=== PATIENT | female | born 1990 | race African-American/Black ===

== ENCOUNTER 2019-12-27 17:58 | Emergency (ER) | payer OTHER ==
[~2019-12-27] VITALS: Ht 175.3 cm; Wt 108.7 kg
[~2019-12-27 17:58] MED LIST: NAPR-514 PO; TRAM50TA PO
--- NOTE | 2019-12-27 18:32 | PHYS DOC ---
Past History Past Medical History: Endometriosis (PALAKMARK APRN) Past Surgical History: Other (PALAKMARK APRN) Smoking: Cigarettes Alcohol Use: Occasionally Drug Use: None (MARK CID SOFIA) Adult General Chief Complaint Chief Complaint: ABDOMINAL PAIN HPI HPI Patient is a 29-year-old female patient with a history of endometriosis presenting to the ED today complaining of severe pelvic pain that has been going on since Wednesday. Patient denies any nausea, vomiting. She states the pain is worse when she is having a bowel movement or urinating. Denies anything relieving the pain. She has tried ibuprofen with no relief. (MARK CID SOFIA) Review of Systems Review of Systems Constitutional: Denies fever or chills [] Eyes: Denies change in visual acuity, redness, or eye pain [] HENT: Denies nasal congestion or sore throat [] Respiratory: Denies cough or shortness of breath [] Cardiovascular: No additional information not addressed in HPI [] GI: Denies abdominal pain, nausea, vomiting, bloody stools or diarrhea [] : Reports pelvic pain. Denies dysuria or hematuria [] Musculoskeletal: Denies back pain or joint pain [] Integument: Denies rash or skin lesions [] Neurologic: Denies headache, focal weakness or sensory changes [] All other systems were reviewed and found to be within normal limits, except as documented in this note. (MARK CID APRN) Allergies Allergies Allergies Coded Allergies Type Severity Reaction Last Updated Verified No Known Drug Allergies 10/22/13 No (MARK CID APRN) Physical Exam Physical Exam Constitutional: Well developed, well nourished, no acute distress, non-toxic appearance. [] HENT: Normocephalic, atraumatic, bilateral external ears normal, oropharynx moist, no oral exudates, nose normal. [] Eyes: PERRLA, EOMI, conjunctiva normal, no discharge. [] Neck: Normal range of motion, no tenderness, supple, no stridor. [] Cardiovascular:Heart rate regular rhythm, no murmur [] Lungs & Thorax: Bilateral breath sounds clear to auscultation [] Abdomen: Bowel sounds normal, soft, no tenderness, no masses, no pulsatile masses. [] Female External pelvic appears normal, cervix is visualized, closed, no CMT, mild amount of discharge in the vaginal vault no adnexal tenderness Skin: Warm, dry, no erythema, no rash. [] Back: No tenderness, no CVA tenderness. [] Extremities: No tenderness, no cyanosis, no clubbing, ROM intact, no edema. [] Neurologic: Alert and oriented X 3, normal motor function, normal sensory function, no focal deficits noted. [] Psychologic: Affect normal, judgement normal, mood normal. [] (MARK CID APRN) EKG EKG [] (MARK CID APRN) Radiology/Procedures Radiology/Procedures []PROCEDURE: US PELVIS W/TV Transabdominal and endovaginal pelvic ultrasound. INDICATION: Pelvic pain. History of endometriosis. Patient had been on medically induced menopause for 2 years. TECHNIQUE: Transabdominal and endovaginal ultrasound of the pelvis was performed using grayscale, color and spectral Doppler imaging. FINDINGS: Uterus measures 7.4 x 6.5 x 3.9 cm. The endometrium measures 5 mm. Right ovary measures 3.2 x 3.9 x 2.0 cm and demonstrates normal blood flow. Small amount of free fluid in the right adnexa is present. The left ovary measures 2.3 x 2.2 x 1.3 cm and demonstrates normal blood flow. A round mass in the uterine body dorsally is present and likely represents a small fibroadenoma. This measures 1.2 x 1.3 cm. IMPRESSION: Myomatous uterus. Otherwise unremarkable pelvic ultrasound with no evidence of ovarian torsion. Electronically signed by: Mery Grimm MD (12/27/2019 8:03 PM) [facility] [place] DICTATED AND SIGNED BY: MERY GRIMM MD DATE: 12/27/192002 CC: [id number]; MARK CID APRN; PCP,NO ~ (MARK CID APRN) Heart Score Risk Factors: Risk Factors: DM, Current or recent (<one month) smoker, HTN, HLP, family history of CAD, obesity. Risk Scores: Risk Factors: DM, Current or recent (<one month) smoker, HTN, HLP, family history of CAD, obesity. (MARK CID APRN) Course & Med Decision Making Course & Med Decision Making Pertinent Labs and Imaging studies reviewed. (See chart for details) This is a 29-year-old female patient presenting to the ED today with pelvic pain that began 4 days ago. Has history of endometriosis. Negative urine hCG, UA is negative. CBC with a WBC of 11.6, CMP with no acute findings, wet prep noted for BV, discharged on Flagyl. Pelvic ultrasound positive for myomatous uterus, otherwise no acute findings. F/u with OB in the course of this week (MARK CID APRN) Course & Med Decision Making Agree with treatment plan. I was present in the ER during the evaluation of this patient (DANIEL BRUNER DO) Dragon Disclaimer Dragon Disclaimer This electronic medical record was generated, in whole or in part, using a voice recognition dictation system. (MARK CID APRN) Departure Departure: Impression: Primary Impression: Fibroids Additional Impression: Bacterial vaginosis Disposition: DC HOME SELF CARE/HOMELESS Condition: STABLE Referrals: PCP,NO (PCP) follow up with your OBGYN as soon as you can Patient Instructions: Bacterial Vaginosis, [id number], Fibroids, [id number] Additional Instructions: You were evaluated in the emergency room, and were noted to have fibroids, you also have bacterial vaginosis, take the prescribed antibiotics until completed. Please follow-up with your [facility] RESERVATIONIST in the course of this week or next week. Scripts Metronidazole (FLAGYL) 500 Mg Tablet 1 TAB PO BID, #14 TAB Prov: MARK CID APRN 20 Tramadol Hcl (TRAMADOL HCL) 50 Mg Tablet 50 MG PO PRN Q6HRS PRN for PAIN, #12 TAB Prov: MARK CID SHOWROOM MANAGER 20 Metronidazole (FLAGYL) 500 Mg Tablet 1 TAB PO BID, #14 TAB Prov: MUTUNGAMARK SHOWROOM MANAGER 11//20 Problem Qualifiers MARK CID APRN Dec 27, 2019 18:32 DANIEL BRUNER DO Dec 27, 2019 21:30
[2019-12-27 18:51] LABS: BASO % 0 % (0-3); EOS # 0.1 x10^3/uL (0.0-0.7); EOS % 1 % (0-3); HEMATOCRIT 42.2 % (36.0-47.0); HEMOGLOBIN 13.9 g/dL (12.0-15.5); LYMPH # 3.2 x10^3/uL (1.0-4.8); LYMPH % 27 % (24-48); MEAN CORPUSCULAR HEMOGLOBIN 28 pg (25-35); MEAN CORPUSCULAR HGB CONC 33 g/dL (31-37); MEAN CORPUSCULAR VOLUME 86 fL (79-100); MONO # 0.6 x10^3/uL (0.0-1.1); MONO % 5 % (0-9); NEUT # 7.7 x10^3uL (1.8-7.7); NEUT % 66 % (31-73); PLATELET COUNT 385 x10^3/uL (140-400); RED CELL DISTRIBUTION WIDTH 13.3 % (11.5-14.5); WHITE BLOOD COUNT 11.6 x10^3/uL (4.0-11.0)
[2019-12-27 18:58] LABS: CALCIUM 8.9 mg/dL (8.5-10.1); GFR 79.3; POTASSIUM 3.6 mmol/L (3.5-5.1)
[2019-12-27 19:03] LABS: ALBUMIN 3.7 g/dL (3.4-5.0); ALBUMIN/GLOBULIN RATIO 0.9 (1.0-1.7); TOTAL BILIRUBIN 0.2 mg/dL (0.2-1.0); TOTAL PROTEIN 7.8 g/dL (6.4-8.2)
--- NOTE | 2019-12-27 20:06 | RAD ---
Transabdominal and endovaginal pelvic ultrasound. INDICATION: Pelvic pain. History of endometriosis. Patient had been on medically induced menopause for 2 years. TECHNIQUE: Transabdominal and endovaginal ultrasound of the pelvis was performed using grayscale, color and spectral Doppler imaging. FINDINGS: Uterus measures 7.4 x 6.5 x 3.9 cm. The endometrium measures 5 mm. Right ovary measures 3.2 x 3.9 x 2.0 cm and demonstrates normal blood flow. Small amount of free fluid in the right adnexa is present. The left ovary measures 2.3 x 2.2 x 1.3 cm and demonstrates normal blood flow. A round mass in the uterine body dorsally is present and likely represents a small fibroadenoma. This measures 1.2 x 1.3 cm. IMPRESSION: Myomatous uterus. Otherwise unremarkable pelvic ultrasound with no evidence of ovarian torsion. Electronically signed by: Chadwick Grimm MD (12/27/2019 8:03 PM) [facility] [place]
[2019-12-27 20:38] LABS: BARBITURATES NEG (NEG); BENZODIAZEPINES NEG (NEG); BILIRUBIN,URINE NEG (NEG); CANNABINOIDS NEG (NEG); CLARITY,URINE CLEAR; COCAINE NEG (NEG); COLOR,URINE YELLOW; GLUCOSE,URINE NEG (NEG); METHADONE NEG (NEG); OPIATES NEG (NEG); PHENCYCLIDINE NEG (NEG)
[2019-12-27 20:39] LABS: BACTERIA,URINE 0 /HPF (0-FEW); NITRITE,URINE NEG (NEG); RBC,URINE 0 /HPF (0-2); SQUAMOUS EPITHELIAL CELL,UR FEW /LPF; UROBILINOGEN,URINE 0.2 mg/dL (0.2 mg/dL); WBC,URINE RARE /HPF (0-4)
[2019-12-27] MEDS ORDERED: METR500T PO ×2 (20:45→20:46)
[2019-12-27] MEDS ORDERED: TRAM50TA PO (20:46)
[2019-12-27 20:49] LABS: AMPHETAMINE/METHAMPHETAMINE NEG (NEG)
[2019-12-27 20:52] VITALS: BP 120/75
[2019-12-29 19:11] LABS: CHLAMYDIA PROBE Negative (Negative)
== END 2019-12-27 20:50 | disposition home or self-care (01) ==
LOC: ER 17:58
DX: D21.9 Benign neoplasm of connective and other soft tissue, unspecified (principal); N76.0 Acute vaginitis; B96.89 Other specified bacterial agents as the cause of diseases classified elsewhere; F17.210 Nicotine dependence, cigarettes, uncomplicated
CPT/HCPCS: 76830; 76856; 80053; 80307; 81001; 81025; 85025; 87491; 87591; 99284; G0480; Q0111; 36415

== ENCOUNTER 2021-06-18 10:16 | Emergency (ER) | payer OTHER ==
[~2021-06-18] VITALS: Ht 175.3 cm; Wt 90.3 kg
[2021-06-18 10:16] VITALS: BP 110/68
[~2021-06-18 10:16] MED LIST changes: +METR500T PO
[2021-06-18] MEDS ORDERED: ACETAMINOPHEN 500 MG TABLET PO ONE (10:45)
[2021-06-18] MEDS ORDERED: ONDANSETRON ODT 4 MG TAB.RAPDIS PO ONE (11:00)
[2021-06-18 11:02] LABS: BACTERIA,URINE FEW /HPF (0-FEW); CLARITY,URINE HAZY; COLOR,URINE YELLOW; GLUCOSE,URINE NEG (NEG); NITRITE,URINE NEG (NEG); SQUAMOUS EPITHELIAL CELL,UR MANY /LPF; UROBILINOGEN,URINE 0.2 mg/dL (0.2 mg/dL)
[2021-06-18 11:08] LABS: BASO % 0 % (0-3); EOS % 0 % (0-3); HEMATOCRIT 38.1 % (36.0-47.0); HEMOGLOBIN 12.7 g/dL (12.0-15.5); LYMPH % 25 % (24-48); MEAN CORPUSCULAR HEMOGLOBIN 29 pg (25-35); MEAN CORPUSCULAR HGB CONC 34 g/dL (31-37); MEAN CORPUSCULAR VOLUME 86 fL (79-100); MONO # 0.4 x10^3/uL (0.0-1.1); MONO % 5 % (0-9); NEUT # 5.7 x10^3uL (1.8-7.7); NEUT % 70 % (31-73); PLATELET COUNT 332 x10^3/uL (140-400); RED BLOOD COUNT 4.44 x10^6/uL (3.50-5.40); RED CELL DISTRIBUTION WIDTH 13.1 % (11.5-14.5); WHITE BLOOD COUNT 8.2 x10^3/uL (4.0-11.0)
[2021-06-18 11:20] LABS: CALCIUM 9.2 mg/dL (8.5-10.1); CREATININE 0.7 mg/dL (0.6-1.0); GFR 118.1; POTASSIUM 3.6 mmol/L (3.5-5.1)
[2021-06-18 11:27] LABS: ALBUMIN 3.7 g/dL (3.4-5.0); TOTAL BILIRUBIN 0.4 mg/dL (0.2-1.0); TOTAL PROTEIN 7.4 g/dL (6.4-8.2)
--- NOTE | 2021-06-18 12:07 | PHYS DOC ---
Past History Past Medical History: Endometriosis (ELVI AYOUB APRN) Past Surgical History: Appendectomy, Other Additional Past Surgical Histo: Laparoscopy for Endometriosis (ELVI AYOUB APRN) Smoking: Cigarettes Alcohol Use: None Drug Use: None (ELVI AYOUB APRN) General Adult EDM: Chief Complaint: ABDOMINAL PAIN IN HPI: HPI: Patient is a 31-year-old female presents with right lower quadrant pain, nausea, vomiting, diarrhea for 1 week. Patient reports taking Tylenol for discomfort with little relief. Patient states that she had a positive test at home. Last menstrual period was 05/19. Patient denies vaginal bleeding, discharge, odor, dysuria. G1, P0. Patient has a history of endometriosis and states that this felt different than her normal pain. Denies fever. Denies exposure illness. Endometriosis is her only medical history. (ELVI AYOUB APRN) Review of Systems: Review of Systems: ROS At least 10 ROS systems have been reviewed and are negative except as documented in the HPI. General: Negative except as outlined in HPI above. Skin: Negative except as outlined in HPI above. HEENT: Negative except as outlined in HPI above. Neck: Negative except as outlined in HPI above. Respiratory: Negative except as outlined in HPI above.. Cardiovascular: Negative except as outlined in HPI above. Abdomen: Negative except as outlined in HPI above. : Negative except as outlined in HPI above. Back/MSK: Negative except as outlined in HPI above. Neuro: Negative except as outlined in HPI above. Psych: Negative except as outlined in HPI above. (ELVI AYOUB APRN) Current Medications: Current Meds: Current Medications Medications (Trade) Dose Ordered Sig/Nirav Start Time Stop Time Status Last Admin Dose Admin Acetaminophen (Tylenol) 500 mg 1X ONCE 06/18/21 10:45 06/18/21 11:04 DC 06/18/21 11:31 500 MG Ondansetron HCl (Zofran Odt) 4 mg 1X ONCE 06/18/21 11:00 06/18/21 11:04 DC 06/18/21 11:30 4 MG (ELVI AYOUB APRN) Allergies: Allergies: Allergies Coded Allergies Type Severity Reaction Last Updated Verified No Known Drug Allergies 10/22/13 No (ELVI AYOUB APRN) Physical Exam: PE: Constitutional: Well developed, well nourished, no acute distress, non-toxic appearance. [] HENT: Normocephalic, atraumatic, bilateral external ears normal, oropharynx moist, no oral exudates, nose normal. [] Eyes: PERRLA, EOMI, conjunctiva normal, no discharge. [] Neck: Normal range of motion, no tenderness, supple, no stridor. [] Cardiovascular:Heart rate regular rhythm, no murmur [] Lungs & Thorax: Bilateral breath sounds clear to auscultation [] Abdomen: Bowel sounds normal, soft, right lower quadrant tenderness Skin: Warm, dry, no erythema, no rash. [] Back: No tenderness, no CVA tenderness. [] Extremities: No tenderness, no cyanosis, no clubbing, ROM intact, no edema. [] Neurologic: Alert and oriented X 3, normal motor function, normal sensory function, no focal deficits noted. [] Psychologic: Affect normal, judgement normal, mood normal. [] (ELVI AYOUB APRN) Current Patient Data: Labs: Laboratory Tests Test 06/18/21 09:35 06/18/21 10:21 06/18/21 10:50 POC Urine HCG, Qualitative hcg positive (Negative) Urine Collection Type Unknown Urine Color Yellow Urine Clarity Hazy Urine pH 7.0 Urine Specific [place] 1.015 Urine Protein Neg (NEG-TRACE) Urine Glucose (UA) Neg mg/dL (NEG) Urine Ketones (Stick) 15 mg/dL (NEG) Urine Blood Neg (NEG) Urine Nitrite Neg (NEG) Urine Bilirubin Neg (NEG) Urine Urobilinogen Dipstick 0.2 mg/dL (0.2 mg/dL) Urine Leukocyte Esterase Neg (NEG) Urine RBC 3-5 /HPF (0-2) Urine WBC 1-4 /HPF (0-4) Urine Squamous Epithelial Cells Many /LPF Urine Bacteria Few /HPF (0-FEW) White Blood Count 8.2 x10^3/uL (4.0-11.0) Red Blood Count 4.44 x10^6/uL (3.50-5.40) Hemoglobin 12.7 g/dL (12.0-15.5) Hematocrit 38.1 % (36.0-47.0) Mean Corpuscular Volume 86 fL (79-100) Mean Corpuscular Hemoglobin 29 pg (25-35) Mean Corpuscular Hemoglobin Concent 34 g/dL (31-37) Red Cell Distribution Width 13.1 % (11.5-14.5) Platelet Count 332 x10^3/uL (140-400) Neutrophils (%) (Auto) 70 % (31-73) Lymphocytes (%) (Auto) 25 % (24-48) Monocytes (%) (Auto) 5 % (0-9) Eosinophils (%) (Auto) 0 % (0-3) Basophils (%) (Auto) 0 % (0-3) Neutrophils # (Auto) 5.7 x10^3uL (1.8-7.7) Lymphocytes # (Auto) 2.0 x10^3/uL (1.0-4.8) Monocytes # (Auto) 0.4 x10^3/uL (0.0-1.1) Eosinophils # (Auto) 0.0 x10^3/uL (0.0-0.7) Basophils # (Auto) 0.0 x10^3/uL (0.0-0.2) Maternal Serum HCG Beta Subunit 2604 mIU/mL (0-6) H Sodium Level 136 mmol/L (136-145) Potassium Level 3.6 mmol/L (3.5-5.1) Chloride Level 104 mmol/L (98-107) Carbon Dioxide Level 24 mmol/L (21-32) Anion Gap 8 (6-14) Blood Urea Nitrogen 10 mg/dL (7-20) Creatinine 0.7 mg/dL (0.6-1.0) Estimated GFR (Cockcroft-Gault) 118.1 BUN/Creatinine Ratio 14 (6-20) Glucose Level 88 mg/dL (70-99) Calcium Level 9.2 mg/dL (8.5-10.1) Total Bilirubin 0.4 mg/dL (0.2-1.0) Aspartate Amino Transferase (AST) 15 U/L (15-37) Alanine Aminotransferase (ALT) 33 U/L (14-59) Alkaline Phosphatase 48 U/L (46-116) Total Protein 7.4 g/dL (6.4-8.2) Albumin 3.7 g/dL (3.4-5.0) Albumin/Globulin Ratio 1.0 (1.0-1.7) Lipase 107 U/L (73-393) Vital Signs: Vital Signs Date Time Temp Pulse Resp B/P (MAP) Pulse Ox O2 Delivery O2 Flow Rate FiO2 06/18/21 10:16 80 110/68 (82) 98 06/18/21 10:16 16 Room Air (ELVI AYOUB APRN) EKG: EKG: [] (ELVI AYOUB APRN) Radiology/Procedures: Radiology/Procedures: []INDICATION: Reason: RLQ PAIN / Spl. Instructions: / History: COMPARISON: None. TECHNIQUE: Grayscale and color ultrasound images of the pelvis. Transabdominal and transvaginal images obtained. Transvaginal images were needed to better visualize structures that were limited on transabdominal imaging. FINDINGS: Uterus: 91 x 74 x 70 mm. Cystic structure within the uterus measuring 3 mm. Uterus has an enlarged and heterogenous appearance. Right adnexal mass measuring 49 x 37 x 24 mm with complex appearance. There is some free fluid in the adnexa. Left ovary is 36 x 28 x 15 mm. IMPRESSION: * Cystic structure within the endometrial stripe which could either be secondary to a very early gestational sac without a pole with another possible cause including a pseudogestational sac. * Heterogenous masslike structure in the right adnexa with surrounding free fluid. Differential considerations would include an adnexal origin mass or ectopic . Continued follow-up will be needed to ensure development of intrauterine and to ensure that this right adnexal mass is not se condary to an ectopic. * Enlargement of the uterus with severe heterogeneity. Could be secondary to multiple fibroids with another possible cause including adenomyosis. Its difficult to measure individual mass given that this process affecting a large portion of the myometrium. Electronically signed by: Camden Rivera MD (06/18/2021 12:18 PM) [id number] (ELVI AYOUB APRN) Heart Score: C/O Chest Pain: No Risk Factors: Risk Factors: DM, Current or recent (<one month) smoker, HTN, HLP, family history of CAD, obesity. Risk Scores: Score 0 - 3: 2.5% MACE over next 6 weeks - Discharge Home Score 4 - 6: 20.3% MACE over next 6 weeks - Admit for Clinical Observation Score 7 - 10: 72.7% MACE over next 6 weeks - Early Invasive Strategies (ELVI AYOUB APRN) Course & Med Decision Making: Course & Med Decision Making Pertinent Labs and Imaging studies reviewed. (See chart for details) [] 31-year-old female presents with right lower quadrant abdominal pain, nausea vomiting and diarrhea. Denies vaginal bleeding, odor,abnormal discharge, dysuria. Denies fever. Patient states that symptoms started last . Patient also has a history of endometriosis but feels like this pain is different. Patient's been taking Tylenol with little relief. Work-up in ER consisted of CBC, CMP, transvaginal ultrasound, urinalysis, beta hCG. Patient given Tylenol and Zofran to help with symptoms. Patient's first OB appointment is for June 25. G1, P0. All labs unremarkable. Beta-hCG 2604. Ultrasound cannot confirm gestational sac. Ultrasound also could not rule out an ectopic. I consulted Dr. Rivera at [facility]. Dr. Rivera suggested patient be seen at the [facility] office on June 25, the patient's original appointment date. Discussed all results with patient. Advised patient to return to emergency room if she has an increase in pain. Tylenol at home for discomfort. Patient is appreciative and okay with discharge plan. (ELVI AYOUB APRN) Dragon Disclaimer: Dragon Disclaimer: This electronic medical record was generated, in whole or in part, using a voice recognition dictation system. (ELVI AYOUB APRN) Attending Co-Sign The patient was seen and interviewed as well as examined at the bedside. The chart was reviewed. The case was discussed. Agree with the plan of care. (MRELE OLSON DO) Departure Departure: Impression: Primary Impression: Abdominal pain affecting Disposition: 01 HOME / SELF CARE / HOMELESS Condition: STABLE Referrals: PCP,NO (PCP) Patient Instructions: Abdominal Pain Additional Instructions: You are seen emergency room for abdominal pain. Ultrasound could not confirm due to earliness of . I spoke with Dr. Rivera who is the OB at the office you will be seen at next week. He suggested you reschedule your appointment for the afternoon of June 25 at [facility] to ensure that they can do another ultrasound at that time. Please return to emergency room if you have worsening symptoms or concern such as an increase in pain, uncontrolled vomiting. Make sure you are drinking plenty of fluids as well. Take Tylenol for discomfort. EMERGENCY DEPARTMENT GENERAL DISCHARGE INSTRUCTIONS Thank you for coming to [facility] (ED) today and trusting us with you care. We trust that you had a positivie experience in our Emergency Department. If you wish to speak to the department management, you may call the director at [phone]. YOUR FOLLOW UP INSTRUCTIONS ARE FOLLOWS: 1. Do you have a private Doctor? If you do not have a private doctor, please ask for a resource list of physicians or clinics that may be able to assist you with follow up care. 2. The Emergency Physician has interpreted your x-rays. The X-Ray specialist will also review them. If there is a change in the findings, you will be notified in 48 hours when at all possible. 3. A lab test or culture has been done, your results will be reviewed and you will be notified if you need a change in treatment. ADDITIONAL INSTRUCTIONS AND INFORMATION: 1. Your care today has been supervised by a physician who is specially trained in emergency care. Many problems require more than one evaluation for a complete diagnosis and treatment. We recommend that you schedule your follow up appointment as recommended to ensure complete treatment of you illness or injury. If you are unable to obtain follow up care and continue to have a problem, or if your condition worsens, we recommend that you return to the ED. 2. We are not able to safely determine your condition over the phone nor are we able to give sound medical advice over the phone. For these safety reasons, if you call for medical advice we will ask you to come to the ED for further evaluation. 3. If you have any questions regarding these discharge instructions please call the ED at [phone]. SAFETY INFORMATION: In the interest of safety, wellness, and injury prevention; we encourage you to wear your sealbelt, if you smoke; quite smoking, and we encourage family to use a pro tective helmet for bicycling and other sporting events that present an increased risk for head injury. IF YOUR SYMPTOMS WORSEN OR NEW SYMPTOMS DEVELOP, OR YOU HAVE CONCERNS ABOUT YOUR CONDITION; OR IF YOUR CONDITION WORSENS WHILE YOU ARE WAITING FOR YOUR FOLLOW UP APPOINTMENT; EITHER CONTACT YOUR PRIMARY CARE DOCTOR, THE PHYSICIAN WHOSE NAME AND NUMBER YOU WERE GIVEN, OR RETURN TO THE ED IMMEDIATELY. ELVI AYOUB APRN Jun 18, 2021 12:07 MERLE OLSON DO Jun 19, 2021 06:06
--- NOTE | 2021-06-18 12:21 | RAD ---
INDICATION: Reason: RLQ PAIN / Spl. Instructions: / History: COMPARISON: None. TECHNIQUE: Grayscale and color ultrasound images of the pelvis. Transabdominal and transvaginal imag es obtained. Transvaginal images were needed to better visualize structures that were limited on tra nsabdominal imaging. FINDINGS: Uterus: 91 x 74 x 70 mm. Cystic structure within the uterus measuring 3 mm. Uterus has an enlarged and heterogenous appearance. Right adnexal mass measuring 49 x 37 x 24 mm with complex appearance. There is some free fluid in the adnexa. Left ovary is 36 x 28 x 15 mm. IMPRESSION: * Cystic structure within the endometrial stripe which could either be secondary to a very early ge stational sac without a pole with another possible cause including a pseudogestational sac. * Heterogenous masslike structure in the right adnexa with surrounding free fluid. Differential cons iderations would include an adnexal origin mass or ectopic . Continued follow-up will be nee ded to ensure development of intrauterine and to ensure that this right adnexal mass is not secondary to an ectopic. * Enlargement of the uterus with severe heterogeneity. Could be secondary to multiple fibroids with another possible cause including adenomyosis. Its difficult to measure individual mass given that thi s process affecting a large portion of the myometrium. Electronically signed by: Camden Rivera MD (06/18/2021 12:18 PM) [id number]
== END 2021-06-18 13:38 | disposition home or self-care (01) ==
LOC: ER 10:16
DX: O26.891 Other specified pregnancy related conditions, first trimester (principal); R10.31 Right lower quadrant pain; O21.9 Vomiting of pregnancy, unspecified; R19.7 Diarrhea, unspecified; O99.331 Smoking (tobacco) complicating pregnancy, first trimester; Z3A.00 Weeks of gestation of pregnancy not specified
CPT/HCPCS: 36415; 76801; 76817; 80053; 81001; 81025; 83690; 84702; 85025; 99284; Q0162